=== PATIENT | female | born 1995 | race Caucasian/White ===

== ENCOUNTER 2023-11-29 09:39 | Day surgery (SDC) | payer MEDICAID ==
[2023-11-27 09:45] LABS: Basophils # (auto) 0.1 10 ^3/uL (0-0.2); Basophils % (auto) 0.8 % (0.0-2.0); Eosinophils # (auto) 0.2 10 ^3/uL (0-0.8); Eosinophils % (auto) 3.7 % (0.0-7.0); Hematocrit 41.6 % (36.0-46.0); Hemoglobin 14.3 g/dL (12.2-16.2); Lymphocytes # (auto) 2.1 10 ^3/uL (0.4-5.4); Lymphocytes % (auto) 34.1 % (10.0-50.0); Mean Corpuscular Hemoglobin 31.4 pg (28.0-32.0); Mean Corpuscular Hgb Conc. 34.5 g/dL (32.0-36.0); Monocytes # (auto) 0.7 10 ^3/uL (0-1.3); Monocytes % (auto) 11.8 % (0.0-12.0); Neutrophils % (auto) 49.6 % (37.0-80.0); Nucleated Red Blood Cells % 0.1 %; Red Blood Cells 4.58 10^6/uL (4.0-5.20); White Blood Cell 6.1 10^3/uL (4.4-10.8)
[2023-11-27 09:56] LABS: Urine Bacteria MANY /hpf (None Seen); Urine Blood Negative /uL (Negative); Urine Clarity Clear (Clear); Urine Hyaline Cast FEW /lpf (0 - 2); Urine Protein, UAD Negative (Negative); Urine Urobilinogen Normal (Negative); Urine WBC 1 /hpf (0 - 5); Urine pH 7.5 (5.0-8.0)
[2023-11-27 10:00] LABS: INR 1.09 (0.9-1.15); Partial Thromboplastin Time 32.9 SEC (24.5-34.5); Prothrombin Time 11.4 sec (9.3-11.8); Urine Color Straw (Yellow)
[2023-11-27 10:23] LABS: Alanine Aminotransferase 11 U/L (7-40); Albumin 4.6 g/dL (3.2-4.8); Alkaline Phosphatase 47 U/L (46-116); Anion Gap 5 (5-15); Aspartate Aminotransferase 22 U/L (13-40); Bilirubin, Total 0.4 mg/dL (0.2-1.0); Blood Urea Nitrogen 9 mg/dL (9-23); Calcium 9.6 mg/dL (8.5-10.1); Carbon Dioxide 29 mmol/L (20-30); Chloride 105 mmol/L (98-107); Glucose 79 mg/dL (74-106); Potassium 4.3 mmol/L (3.5-5.1); Sodium 139 mmol/L (136-145); Total Protein 7.1 g/dL (5.7-8.2)
[~2023-11-29] VITALS: Ht 180.3 cm; Wt 82.1 kg
[~2023-11-29 09:39] MED LIST: FLUO60TA7 PO; OXCA600T3 PO
[2023-11-29] MEDS ORDERED: ceFAZolin 2 GM/D5W50ml 50 ML IV ONE (09:58)
[2023-11-29] MEDS ORDERED: PROPOFOL 10 MG/ML 20 ML IV ONE ×2 (10:15→12:23)
[2023-11-29] MEDS ORDERED: GLYCOPYRROLATE 0.2 MG/ML 1ML VIAL ONE (10:15)
[2023-11-29] MEDS ORDERED: KETOROLAC TROMETH 30 MG/ML 1ML VIAL ONE (10:15)
[2023-11-29] MEDS ORDERED: KETAMINE 50mg/ML 1ml syringe ONE (10:15)
[2023-11-29] MEDS ORDERED: DexAMETHasone SOD PHOS 10MG/1ML VIAL INJ ONE (10:15)
[2023-11-29] MEDS ORDERED: ONDANSETRON HCL 4 MG/2 ML VIAL ONE (10:15)
[2023-11-29] MEDS ORDERED: LIDOCAINE 2% (LOCAL ANESTH.) PF 5ml SDV ONE (10:15)
[2023-11-29] MEDS ORDERED: CIPR500T4 PO (12:09)
[2023-11-29] MEDS ORDERED: HYDR-4902 PO (12:09)
[2023-11-29] MEDS: LIDOCAINE 1% HCL (LOCAL ANESTH.) INJ 20ML MDV ONE (12:17)
[2023-11-29] MEDS: BUPIVACAINE 0.25% INJ 50ML VIAL ONE (12:17)
[2023-11-29 12:58] VITALS: TEMP 98.5; O2SAT 100
[2023-11-29 13:43] VITALS: BP 109/73; PULSE 55; RESP 13; O2SAT 98
== END 2023-11-29 14:09 | disposition home or self-care (01) ==
LOC: SUR 09:39
PROVIDERS: ATTEND Student in an Organized Health Care Education/Training Program
DX: M20.11 Hallux valgus (acquired), right foot (principal); F41.8 Other specified anxiety disorders; F90.8 Attention-deficit hyperactivity disorder, other type; F17.210 Nicotine dependence, cigarettes, uncomplicated; F12.90 Cannabis use, unspecified, uncomplicated; Z88.0 Allergy status to penicillin; Z79.891 Long term (current) use of opiate analgesic
CPT/HCPCS: 28299; 36415; 73620; 73630; 76000; 80053; 81001; 84702; 85025; 85610; 85730; C1713; J0690; J1100; J1885; J2001; J2405; J2704; J3490; L3260